=== PATIENT | female | born 1935 | race Caucasian/White ===

== ENCOUNTER 2022-02-23 13:19 | Emergency (ER) | payer OTHER, SELFPAY ==
[2022-02-23 13:27] VITALS: BP 187/85; PULSE 62; RESP 22; TEMP 36.4; O2SAT 98
[2022-02-23 14:11] LABS: Add Manual Diff / Slide Review NO; Basophils Absolute Auto 0 /uL (0-100); Basophils Percent Auto 0.6 % (0-2); Eosinophils Absolute Auto 200 /uL (0-450); Eosinophils Percent Auto 2.3 % (2-4); Hematocrit 40.6 % (36-46); Lymphocytes Absolute Auto 1700 /uL (1100-4500); Lymphocytes Percent Auto 24.5 % (25-40); Mean Corpuscular HGB Conc 34.6 % (30-36); Mean Corpuscular Hemoglobin 31.9 PG (26-34); Mean Corpuscular Volume 92.2 fL (80-100); Monocytes Absolute Auto 600 /uL (0-900); Monocytes Percent Auto 8.2 % (3-14); Neutrophils Absolute Auto 4500 /uL (1500-7000); Neutrophils Percent Auto 64.4 % (50-75); Platelet Count 234 X10^3/uL (150-400); Red Cell Distribution Width 14.3 % (11.6-14.8)
--- NOTE | 2022-02-23 14:13 | DI.CT.S_ITS ---
PROCEDURE: CT ABDOMEN PELVIS W CON INDICATIONS: RLQ pain, hx oophorectomy TECHNIQUE: After the administration of intravenous contrast, axial sections acquired from the lung bases to the pubic symphysis. Coronal and sagittal reformats were performed. For radiation dose reduction, the following was used: automated exposure control, adjustment of mA and/or kV according to patient size. COMPARISON: None. FINDINGS: Image quality: Excellent. Lung bases: No consolidations or effusions. Heart: Mild cardiomegaly without pericardial effusion. Coronary stent versus coronary artery calcification. ABDOMEN: Liver: Tiny cyst in the caudal aspect of the right lobe of the liver. Gallbladder: Normal. Biliary ducts: Nondilated. Pancreas: Normal. Spleen: Normal size. Anterior splenule. Adrenal Glands: Mild thickening of the left adrenal gland body. No discrete nodules. Kidneys and Ureters: Symmetric enhancement. No nephrolithiasis or hydronephrosis. No hydroureter. Stomach and Bowel: Stomach, small bowel loops, and colon are unremarkable. Normal appendix. Occasional sigmoid diverticulosis. Peritoneum: No abnormal intraperitoneal fluid. No free air. Ventral Wall: No hernias. Abdominal Nodes: No retroperitoneal or mesenteric adenopathy by size criteria. Vessels: Aorta and inferior vena cava are normal in size. Left common iliac vein stent is presentMild abdominal aortic atherosclerotic calcification. PELVIS: Pelvic Organs: The uterus is absent. Ovarian tissue was not identified. No suspicious adnexal masses. Bladder: Urinary bladder demonstrates a normal wall thickness. No stones. Pelvic Nodes: No enlarged lymph nodes. Miscellaneous: No hernias are seen. Bones: Anterior endplate spurring at L5-S1 with ankylosis of the disc space. Multilevel vacuum disc phenomenon in the lumbar spine. Multilevel facet arthropathy. IMPRESSION: 1. No acute process. 2. Occasional sigmoid diverticulosis. Dictated by: Marla Maria M.D. on 02/23/2022 at 15:14 Approved by: Marla Maria M.D. on 02/23/2022 at 15:19
[2022-02-23 14:17] LABS: Alanine Aminotransferase 18 IU/L (<35); Albumin 4.7 g/dL (3.5-5.0); Albumin Globulin Ratio 1.5 (1.0-2.8); Alkaline Phosphatase 107 U/L (38-126); Aspartate Aminotransferase 33 IU/L (14-36); BUN Creatinine Ratio 16.1 (6-22); Blood Urea Nitrogen 15 mg/dL (7-17); Calcium 9.8 mg/dL (8.4-10.2); Carbon Dioxide 29 mmol/L (22-32); Chloride 103 mmol/L (98-107); Estimated Glomerular Filt Rate 59 mL/min (>60); Globulin 3.1 g/dL (1.7-4.1); Glucose 115 mg/dL (80-110); HEMOLYSIS 20 (0-50); Lipase 37 U/L (23-300); Potassium 4.4 mmol/L (3.4-5.1); Sodium 137 mmol/L (137-145); Total Protein 7.8 g/dL (6.3-8.2)
--- NOTE | 2022-02-23 14:21 | ED_ITS ---
HPI - Abdominal Pain <SARIKA Arciniega - Last Filed: 02/23/22 16:58> General Chief Complaint: Abdominal Pain Stated Complaint: abd rt lower quad Time Seen by Provider: 02/23/22 14:05 Source: patient and family Mode of arrival: Ambulatory History of Present Illness HPI narrative: This is a 86-year-old female with history of left iliac stent, atrial fibrillation, currently in sinus rhythm, chronic anticoagulation, right circumflex stenting, hypertension who presents to the emergency department complaining of sudden onset of right lower quadrant tenderness at McBurney's point at 0600 hours this morning combined with nausea. Patient reports that she has history of bilateral oophorectomy, denies any other abdominal surgeries in the past. States that she had popcorn, raspberries, strawberries, and other fresh foods for dinner last night. She endorses nausea without vomiting, denies any dysuria, flank pain, back pain headache, fatigue, fever, or weakness. Patient denies any recent trauma or surgery. Endorses having loose stool this morning, denies any blood in her stool, denies any history of an abnormal colonoscopy. Denies history of GI ulcer or bleeding. Patient is anticoagulated on apixaban, takes losartan and metoprolol. Related Data Home Medications Medication Instructions Recorded Confirmed apixaban 5 mg tablet (Eliquis) 5 mg PO BID 02/23/22 02/23/22 losartan 50 mg tablet 50 mg PO DAILY 02/23/22 02/23/22 metoprolol tartrate 50 mg tablet 50 mg PO DAILY 02/23/22 02/23/22 Allergies Allergy/AdvReac Type Severity Reaction Status Date / Time No Known Drug Allergies Allergy Verified 02/23/22 13:29 Review of Systems <SARIKA Arciniega - Last Filed: 02/23/22 16:58> Review of Systems Narrative: General: denies fever, chills, malaise, sweats, fatigue Head/Neck: denies headache, neck pain, dizziness Eyes: denies visual changes, eye pain Cardio: denies chest pain, palpitations, edema, states history of atrial fibrillation but currently in sinus rhythm0 Respiratory: denies dyspnea, cough, orthopnea GI: Endorses right lower quadrant pain and tenderness to palpation with nausea, without vomiting, endorses loose stool this morning without blood : denies dysuria, hematuria, urinary retention, frequency or incontinence MSK: denies joint pain, muscle weakness Skin: denies rash, itching, skin lesions or other Neuro: denies numbness, tingling Patient History <SARIKA Arciniega - Last Filed: 02/23/22 16:58> Social History Smoking Status: Never smoker Smoking Status: Never smoker Exam <SARIKA Arciniega - Last Filed: 02/23/22 16:58> Narrative Exam Narrative: Independently reviewed vitals signs and nursing notes. General: cooperative, comfortable, in no acute distress, well groomed Head: atraumatic, symmetrical facial expressions Neck: supple Eyes: Corrective lenses, Pupils equal round and reactive, EOMI Mouth/Throat: moist mucus membranes Cardiovascular: regular rate and rhythm, S1-S2 without no peripheral edema, warm extremities Respiratory: normal effort, able to speak in complete sentences, no audible wheezing, stridor, or rales. No retractions or tachypnea. GI: abdomen soft, nontender to palpation, hyperactive bowel tones, nondistended, no masses, no exquisite tenderness with exam, without guarding or rebound. MSK: moves all extremities, neurovascularly intact, no weakness, normal tone Skin: brisk capillary refill, no rash, no erythema Neuro: normal speech and cognition, A&O x3 Psych: mental status is grossly normal, congruent mood, normal affect, pleasant and cooperative Initial Vital Signs Initial Vital Signs: Vital Signs Temperature 97.6 F 02/23/22 13:27 Pulse Rate 62 02/23/22 13:27 Respiratory Rate 02/23/22 13:27 Blood Pressure 187/85 H 02/23/22 13:27 Pulse Oximetry 98 02/23/22 13:27 Oxygen Delivery Method 02/23/22 13:27 <Mamie Dean DO - Last Filed: 02/24/22 08:46> Initial Vital Signs Initial Vital Signs: Vital Signs Temperature 97.6 F 02/23/22 13:27 Pulse Rate 62 02/23/22 13:27 Respiratory Rate 22 02/23/22 13:27 Blood Pressure 187/85 H 02/23/22 13:27 Pulse Oximetry 98 02/23/22 13:27 Oxygen Delivery Method 02/23/22 13:27 Course <SARIKA Arciniega - Last Filed: 02/23/22 16:58> Orders Ordered: Discontinued Medications Ondansetron HCl (Ondansetron 4 Mg/2 Ml Inj) 4 mg IV NOW ONE Stop: 02/23/22 14:14 Last Admin: 02/23/22 16:05 Dose: Not Given Documented By: BS Vital Signs Vital signs: Vital Signs - 8 hr 02/23/22 13:27 02/23/22 16:06 Temperature 97.6 F Pulse Rate 62 70 Respiratory Rate 22 18 Blood Pressure 187/85 H 186/88 H Pulse Oximetry 98 99 Oxygen Delivery Method Room Air Room Air <Mamie Dean DO - Last Filed: 02/24/22 08:46> Orders Ordered: Discontinued Medications Ondansetron HCl (Ondansetron 4 Mg/2 Ml Inj) 4 mg IV NOW ONE Stop: 02/23/22 14:14 Last Admin: 02/23/22 16:05 Dose: Not Given Documented By: BS Vital Signs Vital signs: Vital Signs - 8 hr 02/23/22 13:27 02/23/22 16:06 Temperature 97.6 F Pulse Rate 62 70 Respiratory Rate 22 18 Blood Pressure 187/85 H 186/88 H Pulse Oximetry 98 99 Oxygen Delivery Method Room Air Room Air MDM - Abdominal Pain <SARIKA Arciniega - Last Filed: 02/23/22 16:58> Lab Data Result diagrams: 02/23/22 13:35 02/23/22 13:35 Labs: Lab Results 02/23/22 02/23/22 02/23/22 Range/Units 13:35 13:35 13:35 WBC 7.0 (4.5-11.0) X10^3/uL RBC 4.40 (4.0-5.2) X10^6/uL Hgb 14.0 (12.0-16.0) g/dL Hct 40.6 (36-46) % MCV 92.2 (80-100) fL MCH 31.9 (26-34) PG MCHC 34.6 (30-36) % RDW 14.3 (11.6-14.8) % Plt Count 234 (150-400) X10^3/uL Neut % (Auto) 64.4 (50-75) % Lymph % (Auto) 24.5 L (25-40) % [place] % (Auto) 8.2 (3-14) % Eos % (Auto) 2.3 (2-4) % Baso % (Auto) 0.6 (0-2) % Neut # (Auto) 4500 (9590-8425) /uL Lymph # (Auto) 1700 (0652-8852) /uL [place] # (Auto) 600 (0-900) /uL Eos # (Auto) 200 (0-450) /uL Baso # (Auto) 0 (0-100) /uL D-Dimer 255 H (<230) ng/mL Sodium 137 (137-145) mmol/L Potassium 4.4 (3.4-5.1) mmol/L Chloride 103 (98-107) mmol/L Carbon Dioxide 29 (22-32) mmol/L BUN 15 (7-17) mg/dL Creatinine 0.93 (0.52-1.04) mg/dL Estimated GFR 59 L (>60) mL/min BUN/Creatinine Ratio 16.1 (6-22) Glucose 115 H (80-110) mg/dL Lactate (0.7-2.1) mmol/L Calcium 9.8 (8.4-10.2) mg/dL Total Bilirubin 1.0 (0.2-1.3) mg/dL AST 33 (14-36) IU/L ALT 18 (<35) IU/L Alkaline Phosphatase 107 (38-126) U/L C-Reactive Protein (<1.0) mg/dL Total Protein 7.8 (6.3-8.2) g/dL Albumin 4.7 (3.5-5.0) g/dL Globulin 3.1 (1.7-4.1) g/dL Albumin/Globulin Ratio 1.5 (1.0-2.8) Lipase 37 (23-300) U/L Procalcitonin (<0.5) ng/mL 02/23/22 02/23/22 Range/Units 13:55 13:55 WBC (4.5-11.0) X10^3/uL RBC (4.0-5.2) X10^6/uL Hgb (12.0-16.0) g/dL Hct (36-46) % MCV (80-100) fL MCH (26-34) PG MCHC (30-36) % RDW (11.6-14.8) % Plt Count (150-400) X10^3/uL Neut % (Auto) (50-75) % Lymph % (Auto) (25-40) % [place] % (Auto) (3-14) % Eos % (Auto) (2-4) % Baso % (Auto) (0-2) % Neut # (Auto) (2061-3042) /uL Lymph # (Auto) (9911-5724) /uL [place] # (Auto) (0-900) /uL Eos # (Auto) (0-450) /uL Baso # (Auto) (0-100) /uL D-Dimer (<230) ng/mL Sodium (137-145) mmol/L Potassium (3.4-5.1) mmol/L Chloride (98-107) mmol/L Carbon Dioxide (22-32) mmol/L BUN (7-17) mg/dL Creatinine (0.52-1.04) mg/dL Estimated GFR (>60) mL/min BUN/Creatinine Ratio (6-22) Glucose (80-110) mg/dL Lactate 0.9 (0.7-2.1) mmol/L Calcium (8.4-10.2) mg/dL Total Bilirubin (0.2-1.3) mg/dL AST (14-36) IU/L ALT (<35) IU/L Alkaline Phosphatase (38-126) U/L C-Reactive Protein < 0.5 (<1.0) mg/dL Total Protein (6.3-8.2) g/dL Albumin (3.5-5.0) g/dL Globulin (1.7-4.1) g/dL Albumin/Globulin Ratio (1.0-2.8) Lipase (23-300) U/L Procalcitonin 0.05 (<0.5) ng/mL Point of care testing: Urine Dip Bedside Urine Glucose Negative Bedside Urine Bilirubin - Negative Bedside Urine Ketone - Negative Urine Specific [place] 1.015 Bedside Urine Occult Blood - Negative Bedside Urine pH 6 Bedside Urine Protein - Negative Bedside Urine Urobilinogen - Negative Bedside Urine Nitrite - Negative Bedside Urine Leukocytes - Negative Esterase Imaging Data CT scan - abdomen/pelvis: Radiologist's Impression: PROCEDURE:? CT ABDOMEN PELVIS W CON ? INDICATIONS:? RLQ pain, hx oophorectomy ? TECHNIQUE:? After the administration of intravenous contrast, axial sections acquired from the lung bases to the pubic symphysis.? Coronal and sagittal reformats were performed.? For radiation dose reduction, the following was used:? automated exposure control, adjustment of mA and/or kV according to patient size.? ? COMPARISON:? None. ? FINDINGS:? Image quality:? Excellent.? ? Lung bases:? No consolidations or effusions. Heart:? Mild cardiomegaly without pericardial effusion.? Coronary stent versus coronary artery calcification. ? ABDOMEN: Liver:? Tiny cyst in the caudal aspect of the right lobe of the liver. Gallbladder:? Normal. Biliary ducts:? Nondilated. Pancreas:? Normal. Spleen:? Normal size.? Anterior splenule. Adrenal Glands:? Mild thickening of the left adrenal gland body.? No discrete nodules. Kidneys and Ureters: Symmetric enhancement.? No nephrolithiasis or hydronephrosis.? No hydroureter. ? Stomach and Bowel:? Stomach, small bowel loops, and colon are unremarkable.? Normal appendix.? Occasional sigmoid diverticulosis. Peritoneum:? No abnormal intraperitoneal fluid.? No free air.? ? Ventral Wall: ? No hernias.? Abdominal Nodes:? No retroperitoneal or mesenteric adenopathy by size criteria.? Vessels:? Aorta and inferior vena cava are normal in size.? Left common iliac vein stent is presentMild abdominal aortic atherosclerotic calcification. ? PELVIS: Pelvic Organs:? The uterus is absent.? Ovarian tissue was not identified.? No suspicious adnexal masses. Bladder:? Urinary bladder demonstrates a normal wall thickness.? No stones. Pelvic Nodes: No enlarged lymph nodes.? Miscellaneous: No hernias are seen. ? ? ? Bones:? Anterior endplate spurring at L5-S1 with ankylosis of the disc space.? Multilevel vacuum disc phenomenon in the lumbar spine.? Multilevel facet arthropathy. ? ? IMPRESSION:? ? 1. No acute process. ? 2. Occasional sigmoid diverticulosis. ? ? Dictated by: Marla Maria M.D. on 02/23/2022 at 15:14 ? ? Approved by: Marla Maria M.D. on 02/23/2022 at 15:19 ? ECG Data Interpretation: EKG independently reviewed by Dr. Dean and reveals sinus bradycardia rate of 57 bpm with leftward axis and intervals. No STEMI, ST segment changes, arrhythm ia, or acute ischemic changes. MDM Narrative Medical decision making narrative: This is an 86-year-old female with history of hypertension, atrial fibrillation and chronic anticoagulation on Eliquis with previous celiac stenting coronary who presents to the emergency department with sudden onset of right lower quadrant pain with rebound tenderness on the right over McBurney's point since 0600 hours this morning. Patient reports that she had popcorn, raspberries, strawberries, and some other foods for dinner last night. Reports that she had nausea associated with her right lower quadrant pain and only abdominal surgical history is her iliac stenting and bilateral oophorectomy. Patient endorses having a loose bowel movement this morning without any vomiting. Her lab work overall is grossly unremarkable, no leukocytosis, anemia, D-dimer was adjusted for age and was not significant at 0255, creatinine 0.93 without any priors to compare to, no elevation in liver enzymes, total bilirubin, lipase, or lactate. CT abdomen pelvis was obtained to rule out appendicitis, or other acute abdominal etiology. CT abdomen pelvis with contrast does not show any acute process, shows occasional sigmoid diverticulosis without diverticulitis. 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 Overall she is nontoxic appearing with normal vital signs, afebrile, mildly hypertensive with latest blood pressure of 186/88 without any neuro changes. Encourage patient to stay hydrated, this could be related to gas, her fiber, diet, colitis without significant inflammation. Urine did not show any infection, WBCs, RBCs, or leukocyte esterase. Patient did not have any CVA tenderness. No peritoneal signs on abdominal exam. Patient remains p.o. tolerant. Serial abdominal exam without increase in abdominal pain. Given history and exam, low suspicion for acute abdominal process, such as acute cholecystitis, pancreatitis, perforated viscus, atypical appendicitis, colitis, diverticulitis or nephrolithiasis. Extensive conversation about ER return precautions and need for close follow-up. D-dimer corrected for age Age-Adjusted D-dimer for Venous Thromboembolism (VTE) from [email or web address] on 02/23/2022 All calculations should be rechecked by clinician prior to use RESULT SUMMARY: 870 ?g/L Age-adjusted D-dimer cutoff, FEU VTE unlikely Reported D-dimer is less than or equal to cutoff; consider alternative diagnosis INPUTS: Age ?> 86 years D-dimer level reported by lab ?> 255 ?g/L D-dimer unit type ?> 1 = FEU (unadjusted cutoff typically ~500 or 0.50) At this point, it appears that patient has symptoms which are not emergent and she was given strict return precautions, encouraged to have a well-balanced diet, avoid gaseous foods, try simethicone if it is helpful, she had hyperactive bowel tones and this is likely not going to be persistent. Patient understands to follow-up with her primary care provider or return to the emergency department for any new or worsening symptoms. Patient is appropriate and amenable to discharge home. Vital signs are stable on repeat examination is unremarkable. Patient has been informed of results. Patient has been given strict return to ER precautions for any new or worsening symptoms. Patient understands to follow up closely with outpatient providers as instructed. Patient understands plan and agrees to discharge home. All questions and concerns answered at this time. <Mamie Dean, DO - Last Filed: 02/24/22 08:46> Lab Data Labs: Lab Results 02/23/22 02/23/22 02/23/22 Range/Units 13:35 13:35 13:35 WBC 7.0 (4.5-11.0) X10^3/uL RBC 4.40 (4.0-5.2) X10^6/uL Hgb 14.0 (12.0-16.0) g/dL Hct 40.6 (36-46) % MCV 92.2 (80-100) fL MCH 31.9 (26-34) PG MCHC 34.6 (30-36) % RDW 14.3 (11.6-14.8) % Plt Count 234 (150-400) X10^3/uL Neut % (Auto) 64.4 (50-75) % Lymph % (Auto) 24.5 L (25-40) % [place] % (Auto) 8.2 (3-14) % Eos % (Auto) 2.3 (2-4) % Baso % (Auto) 0.6 (0-2) % Neut # (Auto) 4500 (0733-4095) /uL Lymph # (Auto) 1700 (6553-5180) /uL [place] # (Auto) 600 (0-900) /uL Eos # (Auto) 200 (0-450) /uL Baso # (Auto) 0 (0-100) /uL D-Dimer 255 H (<230) ng/mL Sodium 137 (137-145) mmol/L Potassium 4.4 (3.4-5.1) mmol/L Chloride 103 (98-107) mmol/L Carbon Dioxide 29 (22-32) mmol/L BUN 15 (7-17) mg/dL Creatinine 0.93 (0.52-1.04) mg/dL Estimated GFR 59 L (>60) mL/min BUN/Creatinine Ratio 16.1 (6-22) Glucose 115 H (80-110) mg/dL Lactate (0.7-2.1) mmol/L Calcium 9.8 (8.4-10.2) mg/dL Total Bilirubin 1.0 (0.2-1.3) mg/dL AST 33 (14-36) IU/L ALT 18 (<35) IU/L Alkaline Phosphatase 107 (38-126) U/L C-Reactive Protein (<1.0) mg/dL Total Protein 7.8 (6.3-8.2) g/dL Albumin 4.7 (3.5-5.0) g/dL Globulin 3.1 (1.7-4.1) g/dL Albumin/Globulin Ratio 1.5 (1.0-2.8) Lipase 37 (23-300) U/L Procalcitonin (<0.5) ng/mL 02/23/22 02/23/22 Range/Units 13:55 13:55 WBC (4.5-11.0) X10^3/uL RBC (4.0-5.2) X10^6/uL Hgb (12.0-16.0) g/dL Hct (36-46) % MCV (80-100) fL MCH (26-34) PG MCHC (30-36) % RDW (11.6-14.8) % Plt Count (150-400) X10^3/uL Neut % (Auto) (50-75) % Lymph % (Auto) (25-40) % [place] % (Auto) (3-14) % Eos % (Auto) (2-4) % Baso % (Auto) (0-2) % Neut # (Auto) (0890-7828) /uL Lymph # (Auto) (7879-5528) /uL [place] # (Auto) (0-900) /uL Eos # (Auto) (0-450) /uL Baso # (Auto) (0-100) /uL D-Dimer (<230) ng/mL Sodium (137-145) mmol/L Potassium (3.4-5.1) mmol/L Chloride (98-107) mmol/L Carbon Dioxide (22-32) mmol/L BUN (7-17) mg/dL Creatinine (0.52-1.04) mg/dL Estimated GFR (>60) mL/min BUN/Creatinine Ratio (6-22) Glucose (80-110) mg/dL Lactate 0.9 (0.7-2.1) mmol/L Calcium (8.4-10.2) mg/dL Total Bilirubin (0.2-1.3) mg/dL AST (14-36) IU/L ALT (<35) IU/L Alkaline Phosphatase (38-126) U/L C-Reactive Protein < 0.5 (<1.0) mg/dL Total Protein (6.3-8.2) g/dL Albumin (3.5-5.0) g/dL Globulin (1.7-4.1) g/dL Albumin/Globulin Ratio (1.0-2.8) Lipase (23-300) U/L Procalcitonin 0.05 (<0.5) ng/mL Point of care testing: Urine Dip Bedside Urine Glucose Negative Bedside Urine Bilirubin - Negative Bedside Urine Ketone - Negative Urine Specific [place] 1.015 Bedside Urine Occult Blood - Negative Bedside Urine pH 6 Bedside Urine Protein - Negative Bedside Urine Urobilinogen - Negative Bedside Urine Nitrite - Negative Bedside Urine Leukocytes - Negative Esterase ECG Data Interpretation: EKG independently reviewed by Dr. Dean and reveals sinus bradycardia rate of 57 bpm with leftward axis and intervals. No STEMI, ST segment changes, arrhythmia, or acute ischemic changes. ROXANA Normal sinus rhythm rate 57 OH interval 156 QRS [address] changes no T- wave inversions no priors to compare Discharge Plan Departure Patient Disposition: Home Clinical Impression: Abdominal pain, RLQ Instructions: Acute Abdominal Pain Activity Restrictions/Additional Instructions: *You have been diagnosed with right lower quadrant pain, tenderness, and concern for appendicitis. Your lab work overall is reassuring that there is not any emergent cause for your symptoms today. Please stay hydrated, eat a well- balanced diet and avoid excess in fiber or processed foods to see your pain improves over day or two. Please return for any worsening of your symptoms, blood in your urine, stool, or change to your symptoms. Please follow-up with Dr. Dumas if steroid injections for your lumbar spine were helpful and if you would like to do this again in the future. Thank you for trusting us with your care, I am sorry for the delay today, please enjoy the weather and feel better soon. *What to do: *Please continue to take your regular medications as directed. [ ] New medication prescriptions sent to your pharmacy: [ ] [ ] New medication written as a paper prescription [x ] No new medications given *Please follow up with your primary care provider in 2-3 days, call for an appointment. Let them know you were seen in the Emergency Department and that we asked that you be seen for follow-up. We will electronically transmit a record of today's note if your PCP is in our system *If you do not have a primary care provider please contact [phone] to establish care with one of the [facility] primary care providers. *Return to Emergency Department if you should have any new, worsening or conc erning symptoms, such as [fever greater than 101F, chills, worsening pain, persistent vomiting or other bothersome symptoms] Prescriptions: No Action losartan 50 mg tablet 50 mg PO DAILY Label Comments: TAKE 1 TABLET BY MOUTH EVERY DAY metoprolol tartrate 50 mg Tablet 50 mg PO DAILY Eliquis 5 mg Tablet 5 mg PO BID Referrals: Dino Dumas DO [Physician] - Visit Report Forms: Patient Portal/API <Mamie Dean DO - Last Filed: 02/24/22 08:46> [facility] ED Attending Vaughnature Attestation: I was immediately available in the department for consultation. Documentation has been reviewed. I agree with assessment and plan.
[2022-02-23 14:28] LABS: Lactate (Lactic Acid) 0.9 mmol/L (0.7-2.1)
[2022-02-23 14:33] LABS: D Dimer 255 ng/mL (<230)
[2022-02-23 16:06] VITALS: BP 186/88; PULSE 70; RESP 18; O2SAT 99
[2022-02-23 17:19] LABS: C-Reactive Protein Quant < 0.5 mg/dL (<1.0)
[2022-02-23 17:33] LABS: Procalcitonin 0.05 ng/mL (<0.5)
== END 2022-02-23 16:09 | disposition home or self-care (01) ==
PROVIDERS: Emergency Medicine; Emergency Provider Nurse Practitioner Critical Care Medicine
DX: R10.31 Right lower quadrant pain (principal); Z79.01 Long term (current) use of anticoagulants; Z90.722 Acquired absence of ovaries, bilateral
CPT/HCPCS: 36415; 74177; 80053; 81003; 83605; 83690; 84145; 85025; 85379; 86140; 93005; 99283; 99284; Q9967